=== PATIENT | female | born 1980 | race American Indian/Alaskan Native ===

== ENCOUNTER 2018-03-16 18:28 | Emergency (ER) | payer SELFPAY ==
[2018-03-16 18:41] VITALS: BP 157/102
[2018-03-16] MEDS ORDERED: CLEOCIN IM ONE (21:41)
--- NOTE | 2018-03-16 21:41 | Emergency Department Report ---
ED Eye Problem HPI - General Chief complaint: Eye Problems Stated complaint: R EYE SWELLING Time Seen by Provider: 03/16/18 21:27 Source: patient Mode of arrival: Ambulatory Limitations: No Limitations - History of Present Illness Initial comments: 37-year-old female past medical history none presents with complaint of swelling below right eyebrow above right eyelid. Patient states that it is gotten progressively swollen and painful over the last 2 days. Patient denies fevers chills nausea vomiting or difficulty with her vision. Denies any drainage but does state that there is an abscess head. Denies any other injuries denies any other symptoms. Patient denies using glasses wearing contact lenses denies any recent direct trauma to her right eye. Visible abscess immediately below right eyebrow. MD chief complaint: eye pain, eye redness Onset/Timin -: days(s) Onset Description: sudden Location: right eye Place: home If Injury: none Eye Symptoms: pain Severity: mild If Pain, Quality: aching Consistency: constant Associated Symptoms: none Treatments Prior to Arrival: none - Related Data Previous Rx's Medication Instructions Recorded Last Taken Type Acetaminophen/Codeine [Tylenol 1 tab PO Q6H PRN #6 tab 03/16/18 Unknown Rx /Codeine # 3 tab] Clindamycin [Clindamycin CAP] 300 mg PO Q6H #28 capsule 03/16/18 Unknown Rx Ibuprofen [Motrin] 800 mg PO Q8HR PRN #15 tablet 03/16/18 Unknown Rx Allergies Allergy/AdvReac Type Severity Reaction Status Date / Time No Known Allergies Allergy Verified 03/16/18 22:34 ED Review of Systems ROS: Stated complaint: R EYE SWELLING Other details as noted in HPI Constitutional: denies: chills, fever Eyes: denies: eye pain, eye discharge, vision change ENT: denies: ear pain, throat pain Respiratory: denies: cough, shortness of breath, wheezing Cardiovascular: denies: chest pain, palpitations Endocrine: no symptoms reported Gastrointestinal: denies: abdominal pain, nausea, diarrhea Genitourinary: denies: urgency, dysuria, discharge Musculoskeletal: denies: back pain, joint swelling, arthralgia Skin: denies: rash, lesions Neurological: denies: headache, weakness, paresthesias Psychiatric: denies: anxiety, depression Hematological/Lymphatic: denies: easy bleeding, easy bruising ED Past Medical Hx - Past Medical History Previous Medical History?: No - Surgical History Past Surgical History?: Yes Additional Surgical History: - Social History Smoking Status: Current Every Day Smoker - Medications Home Medications: Home Medications Medication Instructions Recorded Confirmed Last Taken Type Acetaminophen/Codeine [Tylenol 1 tab PO Q6H PRN #6 tab 03/16/18 Unknown Rx /Codeine # 3 tab] Clindamycin [Clindamycin CAP] 300 mg PO Q6H #28 capsule 03/16/18 Unknown Rx Ibuprofen [Motrin] 800 mg PO Q8HR PRN #15 tablet 03/16/18 Unknown Rx ED Physical Exam - General Limitations: No Limitations General appearance: alert, in no apparent distress - Head Head exam: Present: atraumatic, normocephalic - Expanded Head Exam Expanded 1 - Sebaceous cyst/abscess here - Eye Eye exam: Present: normal appearance, PERRL, EOMI, periorbital swelling, periorbital tenderness Pupils: Present: normal accommodation - Expanded Eye Exam Expanded Pupils: Regular, Round: Bilateral, Reactive: Bilateral Sclera/Conjunctival: Normal Inspection: Bilateral Visual acuity (R) = 20/: 20 Visual acuity (L) = 20/: 20 - ENT ENT exam: Present: mucous membranes moist - Neck Neck exam: Present: normal inspection - Respiratory Respiratory exam: Present: normal lung sounds bilaterally. Absent: respiratory distress - Cardiovascular Cardiovascular Exam: Present: regular rate, normal rhythm. Absent: systolic murmur, diastolic murmur, rubs, gallop - GI/Abdominal GI/Abdominal exam: Present: soft, normal bowel sounds - Extremities Exam Extremities exam: Present: normal inspection - Back Exam Back exam: Present: normal inspection - Neurological Exam Neurological exam: Present: alert, oriented X3 - Psychiatric Psychiatric exam: Present: normal affect, normal mood - Skin Skin exam: Present: warm, dry, intact, normal color. Absent: rash ED Course Vital Signs 03/16/18 18:36 Temperature 98.9 F Pulse Rate 78 Blood Pressure 157/102 O2 Sat by Pulse 99 Oximetry - I & D Right Upper Eye Type of Procedure: Simple Site: immediateluy below right eybrow Blade Size: 11 I & D Procedure: betadine prep Progress: Area cleaned with alcohol before. Area media below right eyebrow infiltrated with approximately 2 mL of lidocaine without epinephrine. Good local anesthesia achieved. Single stab incision made less than half a centimeter overlying central abscess site. Moderate amount of sebaceous and purulent drainage material extracted from abscess site. Significant decompression achieved. Wound culture collected. [place] extracted from the wound using forceps. Procedure tolerated well with minimal bleeding. Covered with Band- Aid afterward. Patient's eye globe is intact and vision is 20/20 both before and after procedure. Extraocular movements are intact without difficulty. ED Medical Decision Making - Lab Data Result diagrams: 03/16/18 21:47 03/16/18 21:47 - Medical Decision Making A/P: Infected sebaceous cyst/abscess incision and drainage, preseptal abscess 1- discussed with Dr. Skaggs. Sebaceous cyst/abscess successfully incised and drained. Significant decompression achieved. Wound culture sent 2- Motrin when necessary short course Tylenol 3 when necessary 3- 1 week course of clindamycin 4- As patient's extraocular movements are clinically intact and vision is 20/20 bilaterally and in right eye and abscess is almost entirely drained no clinical indication of post-septal cellulitis or retrobulbar abscess on clinical exam. I advised patient to return to the ED for any fevers chills worsened swelling worsened pain or decreased vision or difficulty moving her eye. Patient stated she understood my instructions. I advised her to return to the ED in 48-72 hours for wound check. Critical care attestation.: If time is entered above; I have spent that time in minutes in the direct care of this critically ill patient, excluding procedure time. ED Disposition Clinical Impression: Infected sebaceous cyst of skin Disposition: DC-01 TO HOME OR SELFCARE Is pt being admited?: No Does the pt Need Aspirin: No Condition: Stable Instructions: Abscess Incision and Drainage (ED), Acute Wound Care (ED) Additional Instructions: Wound check in 48-72 hours in the ED Prescriptions: Acetaminophen/Codeine [Tylenol /Codeine # 3 tab] 1 tab PO Q6H PRN #6 tab PRN Reason: Pain Clindamycin [Clindamycin CAP] 300 mg PO Q6H #28 capsule Ibuprofen [Motrin] 800 mg PO Q8HR PRN #15 tablet PRN Reason: Pain Referrals: [facility] [Provider Group] - 3-5 Days [facility] [Outside] - 3-5 Days Forms: Work/School Release Form(ED) Time of Disposition: 22:26
[2018-03-16] MEDS ORDERED: XYLOCAINE 2% INFILTRATI ONE (21:42)
[2018-03-16 21:56] LABS: Basophils # (Auto) 0.1 K/mm3 (0.0-0.1); Basophils % (Auto) 0.5 % (0.0-1.8); Eosinophils # (Auto) 0.2 K/mm3 (0.0-0.4); Eosinophils % (Auto) 1.7 % (0.0-4.3); Hematocrit 48.8 % (30.3-42.9); Hemoglobin 16.4 gm/dl (10.1-14.3); Lymphocytes # (Auto) 2.2 K/mm3 (1.2-5.4); Lymphocytes % (Auto) 18.2 % (13.4-35.0); Mean Corpuscular HGB Conc 34 % (30-34); Mean Corpuscular Hemoglobin 31 pg (28-32); Mean Corpuscular Volume 91 fl (79-97); Monocytes # (Auto) 0.9 K/mm3 (0.0-0.8); Monocytes % (Auto) 7.6 % (0.0-7.3); Platelet Count 165 K/mm3 (140-440); Red Blood Count 5.37 M/mm3 (3.65-5.03); Red Cell Distribution Width 14.1 % (13.2-15.2)
[2018-03-16 22:13] LABS: BUN/Creatinine Ratio 10; Blood Urea Nitrogen 6 mg/dL (7-17); Calcium 9.2 mg/dL (8.4-10.2); Hemolysis Index 7
[2018-03-16] MEDS ORDERED: NORCO 5/325 ONE ×2 (22:14→22:21)
[2018-03-16] MEDS ORDERED: NORCO 5/325 PO ONE (22:21)
== END 2018-03-16 22:45 | disposition home or self-care (01) ==
LOC: ED 18:28
DX: H02.821 Cysts of right upper eyelid (principal); F17.200 Nicotine dependence, unspecified, uncomplicated
CPT/HCPCS: 36415; 80048; 85025; 87076; 87116; 87186; 96372; 99283

== ENCOUNTER 2019-01-21 15:17 | Emergency (ER) | payer OTHER ==
[2019-01-21 16:19] VITALS: BP 143/88
--- NOTE | 2019-01-21 16:20 | Emergency Department Report ---
Chief Complaint: Skin/Abscess/Foreign Body Stated Complaint: LFT SIDE BOIL/PAIN Time Seen by Provider: 01/21/19 16:16 - HPI History of Present Illness: Pt presents for abscess to left breast x 1 week no drainage, no fever 4 cm area of fluctuance with surrounding erythema, no active drainage never had a mammogram MSE complete MSE screening note: Focused history and physical exam performed. RN present during breast examination ED Disposition for MSE Condition: Stable
[2019-01-21] MEDS ORDERED: ROCEPHIN/NS 1 GM/50 ML 1 GM/50 ML BAG IV ONE (17:36)
--- NOTE | 2019-01-21 17:37 | Emergency Department Report ---
Abscess Boil HPI - HPI Chief Complaint: Skin/Abscess/Foreign Body Stated Complaint: LFT SIDE BOIL/PAIN Time Seen by Provider: 01/21/19 16:16 Duration: 1 Week Location: Other Severity: Mild History: Yes Pain, No Fever, No Purulent Drainage, No Numbness, No Foreign Body, No Previous History, No Insect Bite HPI: large area of l breast cellulitis. no abcess for i/d. no hx of breast ca or family hx. no fever. Home Medications: Previous Rx's Medication Instructions Recorded Last Taken Type cephALEXin [Keflex] 500 mg PO Q12HR #20 cap 01/21/19 Unknown Rx traMADol [Ultram] 50 mg PO Q6HR PRN #10 tablet 01/21/19 Unknown Rx Allergies/Adverse Reactions: Allergies Allergy/AdvReac Type Severity Reaction Status Date / Time No Known Allergies Allergy Verified 03/16/18 22:34 ED Review of Systems ROS: Stated complaint: LFT SIDE BOIL/PAIN Other details as noted in HPI Comment: All other systems reviewed and negative Constitutional: denies: chills, fever Eyes: denies: eye pain ENT: denies: ear pain Respiratory: denies: cough Cardiovascular: denies: palpitations Endocrine: denies: flushing Gastrointestinal: denies: abdominal pain Genitourinary: denies: urgency Musculoskeletal: denies: back pain Skin: as per HPI, lesions. denies: rash, change in color, change in hair/nails, pruritus Neurological: denies: headache Psychiatric: denies: depression Hematological/Lymphatic: denies: easy bleeding ED Past Medical Hx - Past Medical History Previous Medical History?: No - Surgical History Additional Surgical History: - Family History Family history: no significant - Social History Smoking Status: Current Every Day Smoker Substance Use Type: Alcohol, Marijuana - Medications Home Medications: Home Medications Medication Instructions Recorded Confirmed Last Taken Type cephALEXin [Keflex] 500 mg PO Q12HR #20 cap 01/21/19 Unknown Rx traMADol [Ultram] 50 mg PO Q6HR PRN #10 tablet 01/21/19 Unknown Rx ED Abscess Boil Physical Exam - Exam General: Vital signs noted. No distress. Alert and acting appropriately. Exam: Yes Tenderness, Yes Surrounding Cellulites/Erythema, Yes Normal Neurologic Exam, Yes Normal Circulation, No Fluctuance, No Lymphangitis, No Crepitation, No Heart Murmur ED Course Vital Signs 01/21/19 16:17 Temperature 98.1 F Pulse Rate 86 Respiratory 18 Rate Blood Pressure 143/88 O2 Sat by Pulse 97 Oximetry Critical care attestation.: If time is entered above; I have spent that time in minutes in the direct care of this critically ill patient, excluding procedure time. ED Medical Decision Making - Medical Decision Making area of cellulitis covering left medial inferior surface of breast no abscess no nipple inversion or discharge no fever no mass palpable pt is not no hx breast ca with pt or in her family IV Keflex given dc home with keflex and dc plan which includes mamogram. Vital Signs 01/21/19 16:17 Temperature 98.1 F Pulse Rate 86 Respiratory 18 Rate Blood Pressure 143/88 O2 Sat by Pulse 97 Oximetry My Active Orders 01/21/19 17:36 INT [Saline lock] STAT 01/21/19 17:57 BMP [Basic Metabolic Panel] Stat Complete Blood Count w/o Diff Stat ED Disposition Clinical Impression: Cellulitis of breast Disposition: DC-01 TO HOME OR SELFCARE Is pt being admited?: No Does the pt Need Aspirin: No Condition: Stable Instructions: Cellulitis (ED) Additional Instructions: ANTIBIOTIC ORDERED TODAY MOTRIN OR TYLENOL FOR MILD PAIN OR FEVER ULTRAM FOR SEVERE PAIN WARM COMPRESSES YOU WILL NEED TO FOLLOW UP WITH YOUR PCP TO BE SURE YOU ARE RESPONDING TO THE KEFLEX YOU WILL ALSO NEED A MAMOGRAM TO EVALUATE THE UNDERLYING TISSUES. REFERRALS BELOW HYDRATE WELL WITH WATER DIET AND ACTIVITY TOLERATED Referrals: [facility] MD [Primary Care Provider] - 3-5 Days Time of Disposition: 18:16
[2019-01-21 18:33] LABS: Hemoglobin 14.6 gm/dl (10.1-14.3); Mean Corpuscular HGB Conc 34 % (30-34); Mean Corpuscular Volume 92 fl (79-97); Platelet Count 178 K/mm3 (140-440); Red Blood Count 4.67 M/mm3 (3.65-5.03); Red Cell Distribution Width 13.7 % (13.2-15.2)
[2019-01-21 18:40] LABS: BUN/Creatinine Ratio 11; Blood Urea Nitrogen 8 mg/dL (7-17); Calcium 8.7 mg/dL (8.4-10.2); Hemolysis Index 13
== END 2019-01-21 18:36 | disposition home or self-care (01) ==
LOC: ED 15:17
DX: N61.0 Mastitis without abscess (principal); F17.200 Nicotine dependence, unspecified, uncomplicated; F12.10 Cannabis abuse, uncomplicated
CPT/HCPCS: 36415; 80048; 85027; 96365; 99283; J0696

== ENCOUNTER 2021-02-03 00:01 | Emergency (ER) | payer MEDICAID, OTHER ==
[2021-02-03] MEDS ORDERED: LIDOCAINE VISCOUS 2% 15 ML ORAL LIQD PO ONE (02:28)
--- NOTE | 2021-02-03 02:35 | Emergency Department Report ---
HPI - General Chief Complaint: Sore Throat Time Seen by Provider: 02/03/21 02:19 - [facility] HPI: Room 10 The patient is a 40-year-old female present with a chief complaint of foreign body sensation in the throat and left breast abscess. The patient states 2 to 3 days ago while eating chicken wings she swallowed something hard. The patient states since then she has felt as though she has had something stuck in her throat. 2 days ago the patient states she noticed an abscess or swelling around her left breast. She states this abscess opened up and produced greenish drainage. Patient denied ever having any skin changes over the breast. Patient denies history of fever ED Past Medical Hx - Past Medical History Previous Medical History?: No - Surgical History Past Surgical History?: Yes Additional Surgical History: x1 - Family History Family history: no significant - Social History Smoking Status: Current Every Day Smoker (1/2 pack/day) Substance Use Type: Alcohol (Occasional), Marijuana - Medications Home Medications: Home Medications Medication Instructions Recorded Confirmed Last Taken Type cephALEXin [Keflex] 500 mg PO Q12HR #20 cap 01/21/19 Unknown Rx traMADoL [Ultram] 50 mg PO Q6HR PRN #10 tablet 01/21/19 Unknown Rx cephALEXin [Keflex] 500 mg PO Q6HR #40 capsule 02/03/21 Unknown Rx ED Review of Systems ROS: Stated complaint: SOMETHING STUCK IN THROAT;BREAST CELLULITIS Other details as noted in HPI Constitutional: denies: fever Eyes: denies: eye pain ENT: throat pain Respiratory: no symptoms reported Cardiovascular: denies: chest pain Endocrine: no symptoms reported Gastrointestinal: denies: abdominal pain Genitourinary: denies: dysuria Musculoskeletal: denies: back pain Neurological: denies: headache Physical Exam - Physical Exam Physical Exam: GENERAL: The patient is well-developed well-nourished female lying on stretcher not appearing to be in acute distress. [] HEENT: Normocephalic. Atraumatic. Extraocular motions are intact. Patient has moist mucous membranes. Oropharynx clear NECK: Supple. Trachea midline CHEST/LUNGS: Clear to auscultation. There is no respiratory distress noted. HEART/CARDIOVASCULAR: Regular. There is no tachycardia. There is no gallop rub or murmur. ABDOMEN: Abdomen is soft, nontender. Patient has normal bowel sounds. There is no abdominal distention. SKIN: There is a circular region of erythema medial to the nipple of the left breast measuring approximately 10 cm in diameter. No fluctuance palpated in the left breast. Healed site of previous drainage noted close to the nipple. Unable to express any discharge NEURO: The patient is awake, alert, and oriented. The patient is cooperative. The patient has no focal neurologic deficits. The patient has normal speech MUSCULOSKELETAL:There is no evidence of acute injury. ED Course - Consultations Consultation #1: 02/03/21 03:27 [facility] transfer line called 02/03/21 04:53 Case discussed with [facility] Dr. Mehta-will accept patient in transfer Case discussed with [facility] [place] ED physician Dr. Knutson-will accept patient in transfer ED Medical Decision Making - Radiology Data Radiology results: report reviewed (Lateral soft tissue neck x-ray), image reviewed (Lateral soft tissue neck x-ray) Patient: EVELYN RANDHAWA MR#: [id number] : 1980 Acct:[id number] Age/Sex: 40 / F ADM Date: 02/03/21 Loc: ED Attending Dr: Ordering Physician: ÓSCAR LOVELL MD Date of Service: 02/03/21 Procedure(s): XR neck soft tissue Accession Number(s): [id number] cc: ÓSCAR LOVELL MD Fluoro Time In Minutes: XR neck soft tissue INDICATION: Foreign body sensation after eating chicken wings COMPARISON: None. FINDINGS/IMPRESSION: There is a suspected tiny foreign body which could represent a chicken wing bone given the history. This is seen within the hypopharynx and appears in between the thyroid cartilage and hyoid cartilage at the level of the vallecula.. Signer Name: Ahmet Live MD Signed: 02/03/2021 3:13 AM Workstation Name: [id number] Transcribed By: CS Dictated By: Ahmet Live MD Electronically Authenticated By: Ahmet Live MD Signed Date/Time: 02/03/21312 DD/ 6 TD/TT: Print Cancel - Differential Diagnosis Foreign body, pharyngeal abrasion, breast abscess, breast cellulitis Critical care attestation.: If time is entered above; I have spent that time in minutes in the direct care of this critically ill patient, excluding procedure time. ED Disposition Clinical Impression: Cellulitis of left breast, Foreign body sensation in throat, Hypertension Disposition: DC/TX-70 ANOTHER TYPE HLTHCARE Is pt being admited?: No Does the pt Need Aspirin: No Condition: Stable Instructions: Cellulitis, Adult, [id number], Hypertension (ED) Additional Instructions: You are being transferred to [facility] to be evaluated by an otolaryngolo gist (ear nose and throat physician). Return to the emergency department should you develop worsening symptoms, inability to tolerate food or liquids, high fever or any other concerns Prescriptions: cephALEXin [Keflex] 500 mg PO Q6HR #40 capsule Referrals: [facility] [Provider Group] - 3-5 Days Time of Disposition: 04:55 (Awaiting transport)
--- NOTE | 2021-02-03 03:17 | XRay Report ---
XR neck soft tissue INDICATION: Foreign body sensation after eating chicken wings COMPARISON: None. FINDINGS/IMPRESSION: There is a suspected tiny foreign body which could represent a chicken wing bone given the history. T his is seen within the hypopharynx and appears in between the thyroid cartilage and hyoid cartilage a t the level of the vallecula.. Signer Name: Ahmet Live MD Signed: 02/03/2021 3:13 AM Workstation Name: [id number]
[2021-02-03] MEDS ORDERED: cloNIDine 0.2 MG TAB PO ONE (03:41)
[2021-02-03 09:11] VITALS: BP 163/85
== END 2021-02-03 09:25 | disposition other institution (70) ==
LOC: ED 00:01
DX: T17.228A Food in pharynx causing other injury, initial encounter (principal); N61.0 Mastitis without abscess; I10 Essential (primary) hypertension; F17.200 Nicotine dependence, unspecified, uncomplicated; Z79.899 Other long term (current) drug therapy; W45.8XXA Other foreign body or object entering through skin, initial encounter; Y93.89 Activity, other specified; Y92.89 Other specified places as the place of occurrence of the external cause; Y99.8 Other external cause status
CPT/HCPCS: 70360

== ENCOUNTER 2021-03-04 16:02 | Emergency (ER) | payer MEDICAID ==
[2021-03-04] MEDS ORDERED: ASPIRIN 325 MG TAB PO ONE (19:01)
[2021-03-04 19:27] LABS: Basophils # (Auto) 0.1 K/mm3 (0.0-0.1); Basophils % (Auto) 0.7 % (0.0-1.8); Eosinophils % (Auto) 0.1 % (0.0-4.3); Hematocrit 47.4 % (30.3-42.9); Hemoglobin 16.6 gm/dl (10.1-14.3); Lymphocytes % (Auto) 12.7 % (13.4-35.0); Mean Corpuscular HGB Conc 35 % (30-34); Mean Corpuscular Volume 94 fl (79-97); Monocytes # (Auto) 0.8 K/mm3 (0.0-0.8); Monocytes % (Auto) 10.1 % (0.0-7.3); Platelet Count 155 K/mm3 (140-440); Red Blood Count 5.07 M/mm3 (3.65-5.03); Red Cell Distribution Width 13.2 % (13.2-15.2)
--- NOTE | 2021-03-04 19:34 | XRay Report ---
CHEST 2 VIEWS INDICATION / CLINICAL INFORMATION: chest pain. FINDINGS: SUPPORT DEVICES: None. HEART / MEDIASTINUM: No significant abnormality. LUNGS / PLEURA: No significant pulmonary or pleural abnormality. No pneumothorax. ADDITIONAL FINDINGS: No significant additional findings. IMPRESSION: 1. No acute findings. Signer Name: Kevin Lawrence MD Signed: 03/04/2021 7:30 PM Workstation Name: [id number]
[2021-03-04 19:52] LABS: Alanine Aminotransferase 41 units/L (7-56); Albumin 4.3 g/dL (3.9-5); Blood Urea Nitrogen 8 mg/dL (7-17); Calcium 9.2 mg/dL (8.4-10.2); Hemolysis Index 12
[2021-03-04 19:54] LABS: BUN/Creatinine Ratio 13
--- NOTE | 2021-03-04 23:45 | Emergency Department Report ---
ED General Adult HPI - General Chief complaint: High BP Stated complaint: HBP/LIGHTHEADED/SHAKING Source: patient Mode of arrival: Ambulatory Limitations: No Limitations - History of Present Illness Initial comments: Patient is a 40-year-old -[place] female with a history of hypertension who presents to the ED with complaint of acute onset persistently elevated blood pressure for the last 2 days despite taking lovastatin milligrams daily and hydrochlorothiazide 12.5 mg daily. Patient states that she has been taking this medication the last 1 month but in the last 2 days her blood pressure has significantly been elevated. Patient also complains of lightheadedness and mild anterior chest wall tightness with bilateral hand and finger tingling sensations for the last 3 hours. Patient denies chest pain, shortness of breath, dizziness, syncope, nausea, vomiting, cough, change in vision, neck pain, back pain, diaphoresis, abdominal pain, fever, chills, dysphagia, dysphonia, headache and seizures. MD Complaint: Elevated blood pressure; lightheadedness and bilateral hand tingling sensat -: Sudden, days(s) (2) Location: head, chest Radiation: non-radiation Severity scale (0 -10): 1 Quality: dull Consistency: intermittent Improves with: none Worsens with: none Associated Symptoms: denies other symptoms, chest pain (mild chest tightness), other (bilateral hand tingling sensations). denies: confusion, cough, diaphoresis, fever/chills, headaches, loss of appetite, malaise, nausea/vomiting, rash, shortness of breath, syncope Treatments Prior to Arrival: none - Related Data Previous Rx's Medication Instructions Recorded Last Taken Type cephALEXin [Keflex] 500 mg PO Q12HR #20 cap 01/21/19 Unknown Rx traMADoL [Ultram] 50 mg PO Q6HR PRN #10 tablet 01/21/19 Unknown Rx cephALEXin [Keflex] 500 mg PO Q6HR #40 capsule 02/03/21 Unknown Rx amLODIPine 5 mg PO DAILY #30 tab 03/04/21 Unknown Rx Allergies Allergy/AdvReac Type Severity Reaction Status Date / Time No Known Allergies Allergy Verified 03/16/18 22:34 ED Review of Systems ROS: Stated complaint: HBP/LIGHTHEADED/SHAKING Other details as noted in HPI Constitutional: other (lightheadedness, elevated blood pressure). denies: chills, fever Eyes: denies: eye pain, eye discharge, vision change ENT: denies: ear pain, throat pain Respiratory: denies: cough, shortness of breath, wheezing Cardiovascular: chest pain (Mild chest tightness). denies: palpitations Endocrine: no symptoms reported Gastrointestinal: denies: abdominal pain, nausea, vomiting, diarrhea Genitourinary: denies: urgency, dysuria, discharge Musculoskeletal: other (bilateral hand and finger tingling sensations). denies: back pain, joint swelling, arthralgia Skin: denies: rash, lesions Neurological: other (lightheadedness). denies: headache, weakness, paresthesias Psychiatric: denies: anxiety, depression Hematological/Lymphatic: denies: easy bleeding, easy bruising ED Past Medical Hx - Past Medical History Previous Medical History?: No Hx Hypertension: Yes - Surgical History Past Surgical History?: Yes Additional Surgical History: x1 - Social History Smoking Status: Current Every Day Smoker (1/2 pack/day) Substance Use Type: Alcohol (Occasional), Marijuana - Medications Home Medications: Home Medications Medication Instructions Recorded Confirmed Last Taken Type cephALEXin [Keflex] 500 mg PO Q12HR #20 cap 01/21/19 Unknown Rx traMADoL [Ultram] 50 mg PO Q6HR PRN #10 tablet 01/21/19 Unknown Rx cephALEXin [Keflex] 500 mg PO Q6HR #40 capsule 02/03/21 Unknown Rx amLODIPine 5 mg PO DAILY #30 tab 03/04/21 Unknown Rx ED Physical Exam - General Limitations: No Limitations General appearance: alert, in no apparent distress - Head Head exam: Present: atraumatic, normocephalic, normal inspection - Eye Eye exam: Present: normal appearance, PERRL, EOMI Pupils: Present: normal accommodation - ENT ENT exam: Present: normal exam, normal orophraynx, mucous membranes moist, TM's normal bilaterally, normal external ear exam - Neck Neck exam: Present: normal inspection, full ROM - Respiratory Respiratory exam: Present: normal lung sounds bilaterally. Absent: respiratory distress, wheezes, rales, rhonchi, chest wall tenderness, accessory muscle use, decreased breath sounds, prolonged expiratory - Cardiovascular Cardiovascular Exam: Present: regular rate, normal rhythm, normal heart sounds. Absent: systolic murmur, diastolic murmur, rubs, gallop - GI/Abdominal GI/Abdominal exam: Present: soft, normal bowel sounds. Absent: tenderness, guarding, rebound, hyperactive bowel sounds, hypoactive bowel sounds, organomegaly - Extremities Exam Extremities exam: Present: normal inspection, full ROM, normal capillary refill - Back Exam Back exam: Present: normal inspection, full ROM. Absent: tenderness, CVA tenderness (R), CVA tenderness (L), muscle spasm, paraspinal tenderness, vertebral tenderness - Neurological Exam Neurological exam: Present: alert, oriented X3, CN II-XII intact, normal gait, reflexes normal - Psychiatric Psychiatric exam: Present: normal affect, normal mood - Skin Skin exam: Present: warm, dry, intact, normal color. Absent: rash ED Course Vital Signs 03/04/21 16:22 Temperature 98.5 F Pulse Rate 97 H Respiratory 18 Rate Blood Pressure 195/105 [Right] O2 Sat by Pulse 97 Oximetry ED Medical Decision Making - Lab Data Result diagrams: 03/04/21 19:16 03/04/21 19:16 - EKG Data EKG shows normal: sinus rhythm Rate: normal - EKG Data 03/04/21 23:53 EKG shows normal sinus rhythm with a ventricular rate of 97 bpm with an abnormal T with the lateral leads. - Radiology Data Radiology results: report reviewed, [place] [address] XRay Report Signed Patient: EVELYN RANDHAWA MR#: [id number] : 1980 Acct:[id number] Age/Sex: 40 / F ADM Date: 03/04/21 Loc: ED Attending Dr: Ordering Physician: MYRNA VERMA Date of Service: 03/04/21 Procedure(s): XR chest routine 2V Accession Number(s): [id number] cc: MYRNA VERMA Fluoro Time In Minutes: CHEST 2 VIEWS INDICATION / CLINICAL INFORMATION: chest pain. FINDINGS: SUPPORT DEVICES: None. HEART / MEDIASTINUM: No significant abnormality. LUNGS / PLEURA: No significant pulmonary or pleural abnormality. No pneumothorax. ADDITIONAL FINDINGS: No significant additional findings. IMPRESSION: 1. No acute findings. Signer Name: Kevin Lawrence MD Signed: 03/04/2021 7:30 PM Workstation Name: [id number] Transcribed By: LANE Dictated By: Kevin Lawrnece MD Electronically Authenticated By: Kevin Lawrence MD Signed Date/Time: 03/04/211929 DD/ 29 TD/TT: - Medical Decision Making This is a 40-year-old -[place] female with a history of hypertension who presents to the ED with complaint of acute onset persistently elevated blood pressure for the last 2 days despite taking lovastatin milligrams daily and hy drochlorothiazide 12.5 mg daily. Patient states that she has been taking this medication the last 1 month but in the last 2 days her blood pressure has significantly been elevated. Patient also complains of lightheadedness and mild anterior chest wall tightness with bilateral hand and finger tingling sensations for the last 3 hours. In the ED, patient is alert and oriented x3 and is not in distress but hypertensive in triage. EKG shows normal sinus rhythm with a ventricular rate of 97 bpm with an abnormal T with the lateral leads. Chest x-ray shows no acute cardiopulmonary abnormalities or pneumonitis. Lab test results were reviewed and are all nonactionable including 3-hour troponin levels. Patient was treated in the ED with aspirin and on reevaluation, patient's blood pressure improved. Patient is hemodynamically stable, alert and oriented x3 with oxygen saturation of 100% in room air. Patient was discharged home and advised to follow-up with her primary care physician in 2 to 3 days for reevaluation. Patient was advised return to the ED immediately if symptoms get worse. 03/05/21 00:01 - Differential Diagnosis ACS; pneumonia; anxiety; hypertension; dissection; PE Critical care attestation.: If time is entered above; I have spent that time in minutes in the direct care of this critically ill patient, excluding procedure time. ED Disposition Clinical Impression: Uncontrolled stage 2 hypertension, Intermittent lightheadedness Disposition: DC-01 TO HOME OR SELFCARE Is pt being admited?: No Does the pt Need Aspirin: No Condition: Stable Instructions: Hypertension (ED), Hypertension, Adult, [id number] Additional Instructions: All lab test results were reviewed and are all nonactionable including repeat 3- hour troponin levels. EKG shows normal sinus rhythm with a ventricular rate of 97 bpm with an abnormal T with the lateral leads. Chest x-ray showed no acute cardiopulmonary abnormalities or pneumonitis. Therefore take medications as advised for your hypertension, follow-up with your primary care physician in 2 to 3 days for reevaluation. Return to the ED immediately if symptoms get worse. Prescriptions: amLODIPine 5 mg PO DAILY #30 tab Referrals: QUITA SMALLS [Other] - 3-5 Days Forms: Work/School Release Form(ED) Time of Disposition: 23:38 Print Language: THAI
[2021-03-05 07:04] VITALS: BP 167/74
--- NOTE | 2021-03-05 17:13 | Electrocardiograph Report ---
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
== END 2021-03-04 23:50 | disposition home or self-care (01) ==
LOC: ED 16:02
DX: I10 Essential (primary) hypertension (principal); R42 Dizziness and giddiness; F17.200 Nicotine dependence, unspecified, uncomplicated; F12.10 Cannabis abuse, uncomplicated; Z98.890 Other specified postprocedural states; Z79.899 Other long term (current) drug therapy
CPT/HCPCS: 36415; 71046; 80053; 84484; 85025; 93005